=== PATIENT | male | born 1945 | race Caucasian/White ===

== ENCOUNTER → 2021-05-11 | Outpatient (CLI) | payer MEDICARE, SELFPAY ==
[~2021-05-11] MED LIST: CARDIZEM CD240 MG PO; ECOTRIN81 MG PO; ELAVIL 25 MG TA25 MG PO; FISH OIL 1,0001 EACH PO; IMDUR ER TAB 3030 MG PO; INDERAL TAB 1010 MG PO; LIPITOR TAB 2020 MG PO; NITROSTAT0.4 MG SL; NORVASC10 MG PO; PRINIVIL10 MG PO; VITAMIN B12-FO1 EACH PO; ZOCOR20 MG PO
== END ==
LOC: EXRD 08:00
DX: M25.461 Effusion, right knee (principal); R93.6 Abnormal findings on diagnostic imaging of limbs
CPT/HCPCS: 93971

== ENCOUNTER → 2021-12-31 | Outpatient (CLI) | payer MEDICARE | LOC: RAD 14:40 | DX: M25.561 Pain in right knee (principal); M79.651 Pain in right thigh; M79.661 Pain in right lower leg; Z96.651 Presence of right artificial knee joint; M79.89 Other specified soft tissue disorders | CPT/HCPCS: 73552; 73562; 73590 ==

== ENCOUNTER → 2022-01-11 | Outpatient (CLI) | payer MEDICARE | LOC: EXRD 10:59 | DX: M79.661 Pain in right lower leg (principal) | CPT/HCPCS: 93971 ==

== ENCOUNTER 2022-04-07 21:35 | Emergency (ER) | payer MEDICARE ==
[2022-04-08] MEDS ORDERED: ZOFRAN ODT 4 MG4 MG PO (01:02)
[2022-04-08] MEDS ORDERED: IMITREX25 MG PO (01:02)
== END 2022-04-08 01:14 | disposition home or self-care (01) ==
LOC: ER1 21:35
DX: R51.9 Headache, unspecified (principal); R11.0 Nausea; H91.90 Unspecified hearing loss, unspecified ear
CPT/HCPCS: 70450; 96374; 96375; 99284; J1200; J1885; J2405

== ENCOUNTER → 2022-04-11 | Outpatient (CLI) | payer MEDICARE ==
[~2022-04-11] MED LIST changes: +IMITREX25 MG PO; +ZOFRAN ODT 4 MG4 MG PO
== END ==
LOC: RAD 12:09
DX: M50.30 Other cervical disc degeneration, unspecified cervical region (principal)
CPT/HCPCS: 72050

== ENCOUNTER → 2022-04-20 | Outpatient (CLI) | payer MEDICARE | LOC: EMI 15:44 | DX: M54.2 Cervicalgia (principal); M47.812 Spondylosis without myelopathy or radiculopathy, cervical region; M48.02 Spinal stenosis, cervical region | CPT/HCPCS: 72141 ==